=== PATIENT | female | born 1945 | race Caucasian/White ===

== ENCOUNTER 2022-10-30 20:07 | Inpatient (IN) | payer MEDICAID ==
[~2022-10-30] VITALS: Ht 152.4 cm; Wt 79.0 kg
[2022-10-30 21:10] LABS: HEMATOCRIT. 28.7 % (36.0-48.0); HEMOGLOBIN. 9.7 g/dL (12.0-16.0); MEAN CORPUSCULAR HEMOGLOBIN 32.3 pg (28.0-32.0); MEAN CORPUSCULAR VOLUME 95.5 fL (81.0-99.0); MEAN PLATELET VOLUME 6.7 fl (7.4-10.4); PLATELET 314 x1000/uL (130-400); RED BLOOD CELL COUNT 3.01 mill/uL (4.2-5.4); RED CELL DISTRIBUTION WIDTH 15.8 % (11.6-14.6)
[2022-10-30 21:17] LABS: CHLORIDE 95 mEq/L (98-107)
[2022-10-30 21:45] LABS: PLATELET ESTIMATE NORMAL
[2022-10-30] MEDS ORDERED: CEFTRIAXONE 1 G PREMIX 50 ML IV ONE (22:30)
[2022-10-30] MEDS ORDERED: AZITHROMYCIN 500MG/250ML 250 ML IV ONE (22:30)
[2022-10-31 00:09] LABS: CLARITY URINE CLEAR (CLEAR); COLOR URINE YELLOW (YELLOW); KETONES URINE NEGATIVE (NEGATIVE); LEUKOCYTE ESTERASE URINE 3+ (NEGATIVE); NITRITE URINE NEGATIVE (NEGATIVE); OCCULT BLOOD URINE NEGATIVE (NEGATIVE); PROTEIN URINE NEGATIVE (NEGATIVE); SPECIFIC GRAVITY URINE 1.013 (1.005-1.030); UROBILINOGEN URINE 0.2 E.U./dL (0.2-1.0)
[2022-10-31] MEDS ORDERED: AZITHROMYCIN 500MG/250ML 250 ML IV NR (01:45)
[2022-10-31] MEDS ORDERED: CEFTRIAXONE 1 G PREMIX 50 ML IV NR (01:45)
[2022-10-31] MEDS ORDERED: ACET-2708 PO (08:26)
[2022-10-31] MEDS ORDERED: LIDO30CR46 TP (08:26)
[2022-10-31] MEDS ORDERED: POLY17PO43 PO (08:26)
[2022-10-31] MEDS ORDERED: DICL100G31 TP (08:26)
[2022-10-31] MEDS ORDERED: CALC-775 PO (08:26)
[2022-10-31] MEDS ORDERED: SENN-257 PO (08:26)
[2022-10-31] MEDS ORDERED: TERA2CAP4 PO (08:26)
[2022-10-31] MEDS ORDERED: OMEP20CA14 PO (08:26)
[2022-10-31] MEDS ORDERED: LISI40TA13 PO (08:26)
[2022-10-31] MEDS ORDERED: HYDR25TA PO (08:26)
[2022-10-31] MEDS ORDERED: FOLI-43 PO (08:26)
[2022-10-31] MEDS ORDERED: FURO20TA4 PO (08:26)
[2022-10-31] MEDS ORDERED: ALBUTER (08:26)
[2022-10-31] MEDS ORDERED: METH2.5T PO (08:26)
[2022-10-31] MEDS ORDERED: CLAR-44 PO (08:26)
[2022-10-31] MEDS ORDERED: AMLO2.5T45 PO (08:26)
[2022-10-31] MEDS ORDERED: ALEN70TA79 PO (08:26)
[2022-10-31] MEDS ORDERED: FERR325T6 PO (08:26)
[2022-10-31] MEDS ORDERED: ATOR40TA70 PO (08:26)
[2022-10-31] MEDS ORDERED: ACETAMINOPHEN 325MG TABLET PO PRN (09:15)
[2022-10-31] MEDS ORDERED: ALBUMIN HUMAN 12.5GM/50ML (25%) IV SCH (09:15)
[2022-10-31] MEDS ORDERED: ONDANSETRON HCL 4MG/2ML INJ IV PRN (09:15)
[2022-10-31] MEDS ORDERED: DOCUSATE SODIUM 100MG CAPSULE PO PRN (09:15)
[2022-10-31 09:30] VITALS: BP 146/78
[2022-10-31 12:00] VITALS: BP 144/76
[2022-10-31] MEDS: FUROSEMIDE 20MG/2ML VIAL IVP SCH (13:40)
[2022-10-31] MEDS ORDERED: ATOR40TA70 MT (14:45)
[2022-10-31] MEDS ORDERED: FURO20TA4 MT (14:45)
[2022-10-31 16:00] VITALS: BP 128/77
[2022-10-31 17:00] VITALS: BP_SYST 116; BP_SYST 118; BP_SYST 126; BP_DIAS 66; BP_DIAS 76; BP_DIAS 78
[2022-10-31 20:00] VITALS: BP 130/78
[2022-11-01] VITALS: BP 125/75
[2022-11-01 04:00] VITALS: BP 131/75
[2022-11-01 05:54] LABS: CHLORIDE 98 mEq/L (98-107)
[2022-11-01 06:27] LABS: BASOPHILS % 0.4 % (0.0-2.0); EOSINOPHILS % 0.6 % (0.0-5.0); HEMATOCRIT. 28.2 % (36.0-48.0); HEMOGLOBIN. 9.4 g/dL (12.0-16.0); MEAN CORPUSCULAR HEMOGLOBIN 31.5 pg (28.0-32.0); MEAN CORPUSCULAR VOLUME 94.3 fL (81.0-99.0); MONOCYTES % 10.1 % (2.0-8.0); NEUTROPHILS % 66.9 % (40.0-76.0); PLATELET 302 x1000/uL (130-400); RED BLOOD CELL COUNT 2.99 mill/uL (4.2-5.4); RED CELL DISTRIBUTION WIDTH 15.6 % (11.6-14.6)
[2022-11-01 08:00] VITALS: BP 131/66
[2022-11-01] MEDS: FUROSEMIDE 20MG/2ML VIAL IVP SCH (08:30)
[2022-11-01 12:00] VITALS: BP_SYST 108; BP_SYST 127; BP_SYST 135; BP_DIAS 75; BP_DIAS 77; BP_DIAS 82
[2022-11-01] MEDS ORDERED: TAMSULOSIN HCL 0.4MG SR CAPSULE PO SCH (12:30)
[2022-11-01] MEDS ORDERED: FURO-152 MT (15:57)
[2022-11-01 16:00] VITALS: BP 145/85
[2022-11-01 16:01] VITALS: BP 130/66
== END 2022-11-01 17:05 | disposition home or self-care (01) | DRG 52 ==
LOC: ER 20:13 → 8WST 22:16 → EDBEDREQTM 22:18 → EDBEDREQ 22:18
PROVIDERS: ADMIT Internal Medicine; ATTEND Internal Medicine
DX: G93.41 Metabolic encephalopathy (principal); D86.0 Sarcoidosis of lung; E86.0 Dehydration; R33.9 Retention of urine, unspecified; E78.5 Hyperlipidemia, unspecified; Z20.822 Contact with and (suspected) exposure to COVID-19; I35.0 Nonrheumatic aortic (valve) stenosis; I10 Essential (primary) hypertension; Z79.899 Other long term (current) drug therapy; Z86.73 Personal history of transient ischemic attack (TIA), and cerebral infarction without residual deficits; T50.1X5A Adverse effect of loop [high-ceiling] diuretics, initial encounter
CPT/HCPCS: 36415; 71045; 80053; 81003; 83880; 84484; 85025; 87077; 87186; 87426; 93005; 99285; J0456; J0696; J1940; P9047